=== PATIENT | female | born 1965 | race Two or more races ===

== ENCOUNTER → 2016-11-01 | Outpatient (CLI) | payer OTHER | LOC: CIMAGING 12:22 | PROVIDERS: ATTEND Family Medicine | DX: Z12.31 Encounter for screening mammogram for malignant neoplasm of breast (principal) | CPT/HCPCS: G0202 ==

== ENCOUNTER 2016-12-06 08:40 | Emergency (ER) | payer OTHER ==
--- NOTE | 2016-12-08 08:51 | EDPHY ---
General Narrative: I was called to see patient for a medical screening exam. Patient's chief complaint and condition are such that I cannot exclude an emergency medical condition, however the patient has refused to stay for further evaluation but states they will seek care elsewhere. This patient had an appointment pending with her primary care physician in 2 hours. - History Smoking Status: Never smoked - Objective Allergies/Adverse Reactions: No Known Allergies Allergy (Verified 06/04/13 11:50) Home Medications: Medication Instructions Recorded Carvedilol [Coreg (RX)] 25 mg PO BID 06/04/13 Losartan Potassium [Cozaar 50 mg 50 mg PO DAILY 06/04/13 (*)] Azithromycin [Zithromax] 250 mg PO DAILY #4 tab 07/23/14 Fluticasone Hfa 220 Mcg [Flovent 2 puffs IH DAILY #1 mdi 07/23/14 220 MCG Hfa MDI (*)] Losartan Potassium [Cozaar 25 mg 25 mg PO DAILY #30 tab 07/23/14 (*)] Departure - Departure Disposition: Left Without Being Seen Referrals: Indu Michel DO [Primary Care Provider] - As per Instructions
== END 2016-12-06 08:49 | disposition left against medical advice (07) ==
LOC: CED 08:40
DX: Z53.21 Procedure and treatment not carried out due to patient leaving prior to being seen by health care provider (principal)

== ENCOUNTER → 2017-11-07 | Outpatient (CLI) | payer OTHER | LOC: CIMAGING 10:35 | PROVIDERS: ATTEND Family Medicine | DX: Z12.31 Encounter for screening mammogram for malignant neoplasm of breast (principal) ==